=== PATIENT | male | born 1970 | race African-American/Black ===

== ENCOUNTER 2016-08-14 06:36 | Inpatient (IN) | payer OTHER ==
--- NOTE | ~2016-08-14 | CR63 ---
[facility] A Service of [facility] & [facility] RADIOLOGY TEXT RESULTS PATIENT: RADHA SCHREIBER LOCATION: [facility] 55- : 71 UNIT #: [id number] AGE: [address]: Rivera Humphries MD SEX: M ORDER DR: [id number] [facility] [address] [facility]. [place], [place] [address] [id number] MR#: [id number] Acc #: [id number] NAME: RADHA SCHREIBER : 1970 SEX: M STUDY DATE/TIME: 08/14/2016 7:42 UNIT: [facility] ROOM: [facility] STUDY DESCRIPTION: CR Chest 2 View Attending Physician: Fani Garcia M.D. Ordering Physician: Yuniel Solares D.O. Primary Care Physician: Cristina Amezquita M.D. MEDICAL IMAGING REPORT This report is preliminary unless electronic signature is present EXAM Two-view chest x-ray HISTORY Constant coughing, unproductive, cannot sleep, symptoms for 3-4 days, history of untreated essential hypertension and history of bronchitis. COMMENT Two views of the chest reviewed. Comparison study is 10/15/2014. No pleural effusion. Mild thoracic degenerative changes. Cardiac silhouette size is normal. No acute-appearing parenchymal infiltrate, acute congestive failure or pneumothorax. IMPRESSION No active disease. Dictated by... Danae Escobedo M.D. THIS IS AN ELECTRONICALLY VERIFIED REPORT Danae Escobedo M.D. at 08/16/2016 8:38 AM ROMAN/erickson TD: 08/15/2016 06:56 JOB #: [id number] MEDICAL IMAGING REPORT Page 1 of 1 COPY
--- NOTE | ~2016-08-14 | EKG ---
PATIENT: RADHA SCHREIBER UNIT #: [id number] Ventricular Rate: 71 BPM Atrial Rate: 71 BPM P-R Interval: 134 ms QRS Duration: 100 ms Q-T Interval: 406 ms QTC Calculation(Bezet): 441 ms P [place]: 68 degrees Calculated R [place]: 45 degrees Calculated T [place]: 20 degrees Diagnosis Line: Sinus rhythm with marked sinus arrhythmia Diagnosis Line: Nonspecific T wave abnormality Diagnosis Line: Abnormal ECG Diagnosis Line: When compared with ECG of 14-AUG-2016 08:24, Diagnosis Line: No significant change was found Diagnosis Line: Confirmed by SATHISH ARTHUR MD ([id number]) on Diagnosis Line: 08/15/2016 5:17:34 PM INTERPRETING MD: PÉREZ
--- NOTE | ~2016-08-14 | HP ---
Unit #: [id number] #: [id number] Patient: RADHA SCHREIBER [id number] [facility]. [place], [place] [address] [id number] I MR#: [id number] NAME: RADHA SCHREIBER ROOM: 558 Age: 46 Sex: M Admission Date: 08/14/2016 : 1970 Attending Physician: Fani Garcia M.D. Primary Care Physician: Cristina Amezquita M.D. HISTORY AND PHYSICAL CHIEF COMPLAINT Cough, chest pain. HISTORY OF PRESENT ILLNESS The patient is a 46-year-old male with a past medical history of asthma, hypertension, who presented to the emergency department for evaluation of the above. The patient states that he had a two to three day history of increasing shortness of breath and nonproductive cough. He denies any fever. He states that he has had chest pain in the mid chest that he describes as "irritating." He has had associated shortness of breath. The pain has been fairly constant in nature. There are no alleviating factors exacerbated by breathing. He states that he has had pain in the left upper extremity as well. He denies any similar pain. In the emergency department, chest x-ray was done and showed nothing acute. Initial EKG showed normal sinus rhythm, rate of 64 beats/minute. Initial cardiac enzymes are negative. Urine tox screen was positive for cocaine and marijuana. He was given aspirin and Solu-Medrol in the emergency department. He is being admitted to [facility] for evaluation and further treatment. PAST MEDICAL HISTORY 1. The patient denies hospitalizations. 2. Asthma. 3. Hypertension although the patient denies taking medication for over a year. PAST SURGICAL HISTORY 1. Left finger surgery. 2. Jaw surgery. SOCIAL HISTORY The patient lives with his sister. He smokes a pack of cigarettes daily. He reports occasional alcohol use. He denied illicit drug use; however, his tox screen is positive for cocaine. He is not currently working. FAMILY HISTORY Notable for his mother dying at the age of 64 of a myocardial infarction. She also had a history of stroke. ALLERGIES No known allergies. Unit #: [id number] #: [id number] Patient: RADHA SCHREIBER HOME MEDICATIONS None. REVIEW OF SYSTEMS A complete review of systems is negative except as indicated in the HPI. DIAGNOSTIC STUDIES CARDIOVASCULAR: EKG shows normal sinus rhythm with a rate of 64 beats/minute. IMAGING: Chest x-ray shows nothing acute. LABORATORY: Basic metabolic panel notable for potassium of 3.3. Complete blood count notable for white blood cell count of 15.4. D-dimer is 157. Troponin is less than 0.05. Urinalysis notable for trace leukocyte esterase, 1+ protein, 5-10 white blood cells. Urine tox screen positive for marijuana and cocaine. PHYSICAL EXAMINATION VITAL SIGNS: Temperature is 98.5, pulse 87, respirations 18, blood pressure 138/105, most recently 143/96. Oxygen saturation is 97% on room air. GENERAL: The patient is an -Syrian male who is awake and alert, in no acute distress. HEENT: The head is atraumatic. Mucous membranes are moist. NECK: Supple. Trachea is midline. CARDIOVASCULAR: Regular rate and rhythm. LUNGS: Clear to auscultation bilaterally with no increased work of breathing. ABDOMEN: Soft, nontender with bowel sounds present in all four quadrants. EXTREMITIES: Nontender with no pedal edema. NEURO: The patient is awake and alert. He follows commands. PSYCH: Mood and affect are normal. The patient is cooperative. SKIN: Skin of examined areas if warm and dry. ASSESSMENT The patient is a 46-year-old male with: 1. Chest pain: The patient has never had a stress test or cardiac catheterization. The patient received aspirin in the emergency department. 2. Cocaine abuse. 3. Possible urinary tract infection. 4. Leukocytosis. 5. Hypokalemia. 6. History of asthma. 7. Hypertension. 8. Tobacco abuse. PLAN 1. Admit for observation to intermediate level. 2. Healthy heart diet. 3. NPO after midnight for possible stress test. 4. Serial cardiac enzymes. Unit #: [id number] #: [id number] Patient: RADHA SCHREIBER 5. Fasting lipid profile. 6. Consult Dr. Barger regarding chest pain. 7. internet technology manager/social work consult regarding cocaine abuse. 8. Blood cultures x2. 9. Urine culture and sensitivity on urine in the lab. 10. Rocephin 1 g IV daily pending results of urine culture. 11. Check magnesium level. 12. Potassium/magnesium protocol. 13. Supplemental oxygen. 14. P.r.n. Duo-Nebs. 15. SCDs for DVT prophylaxis. 16. Repeat labs in the morning. 17. Additional workup and consultants based on above. Dictated by Usman Tabor/nona TD: 08/14/2016 13:17 JOB #: [id number] HISTORY AND PHYSICAL Page 1 of 1 X Fani Garcia MD X HISTORY AND PHYSICAL
--- NOTE | ~2016-08-14 | CO ---
Unit #: [id number] #: [id number] Patient: RADHA SCHREIBER [id number] [address] [place], [place] [address] [id number] I MR#: [id number] NAME: RADHA SCHREIBER ROOM: 55 Age: 46 Sex: M Admission Date: 08/14/2016 : 1970 Attending Physician: Rivera Humphries M.D. Primary Care Physician: Cristina Amezquita M.D. Consultation Date: 08/15/2016 CONSULTATION REPORT BRIEF HISTORY The patient is a 46-year-old, who presents with originally chest pain, now presents with a 2-day history of abdominal pain. It is diffuse suprapubic nonradiating. He has had a history of similar type pain. Reports he was diagnosed with diverticula and placed on antibiotics for 2 weeks. This was in the last 5 months. He has had no colonoscopy. No recent diarrhea or bright red blood per rectum. PAST MEDICAL HISTORY Respiratory dysfunction. PAST SURGICAL HISTORY No previous operations. MEDICATIONS No chronic medications. SOCIAL HISTORY Smokes pack per day. Occasional alcohol. FAMILY HISTORY Negative for GI malignancy. REVIEW OF SYSTEMS No cardiopulmonary complaints at this time. Else, 10 systems reviewed and negative. PHYSICAL EXAMINATION GENERAL: He is awake, alert, appropriate, in no distress. HEENT: Unremarkable. NECK: Supple. No JVD. Trachea midline. LUNGS: Clear to auscultation. Bilateral breath sounds symmetric. CARDIOVASCULAR: Regular rate and rhythm. ABDOMEN: Soft. It is diffusely tender in the suprapubic region. No rebound. No masses palpable. No hernias. No peritoneal signs. EXTREMITIES: No clubbing, cyanosis, or edema. DIAGNOSTIC STUDIES LABORATORY RESULTS: Show white count of 19. IMAGING STUDIES: Recent CT scan shows perisigmoid inflammation with microperforation. No drainable abscess. ASSESSMENT Unit #: [id number] #: [id number] Patient: RADHA SCHREIBER Diverticulitis, recurrent with microperforation. PLAN Recommend bowel rest, antibiotics. We will reassess. We will eventually require colonoscopy and likely elective resection. Dictated by... Norm Doe M.D. MARK/mary TD: 08/15/2016 17:16 JOB #: [id number] CONSULTATION REPORT Page 1 of 1 X Norm Doe MD CONSULTATION REPORT
--- NOTE | ~2016-08-14 | A ---
[facility] Nutrition Therapy DATE: 08/18/16 Patient: RADHA SCHREIBER Physician: NATALIYA Address: [address] Room/Bed: [address] [place] [address], Zip: [place] [address] Admit Date: 08/14/16 Date of : [birth year] Height: 5 7 Weight: 169 76.8 NUTRITIONAL ASSESSMENT: REASON: Consult re: diverticulitis diet education 46 y/o male admitted for chest pain PMH: asthma, HTN Anthropometrics: ht: 5'7" wt: 169# (76.8 kg) BMI 27 Labs: Alb 3.3 Assessment: Chart reviewed, events noted. Pt seen for consult re: diverticulitis diet education. RD marketing summer intern visited pt at bedside. Pt reports he has experienced diverticulitits flare-ups the past few months. RD marketing summer intern provided written and verbal low fiber diet education and advised pt to follow low-fiber diet and gradually increase fiber intake as tolerated. Pt had no questions at this time. RD will remain available. Intervention: 1. Diverticulitis diet education Recommendations: 1. Follow low-fiber diet and gradually increase fiber intake as tolerated to regulate GI function. Respectfully, SHAYY MERINO, international guest coordinator Marlene Little MS, RD, LD [facility] cc: client file
--- NOTE | ~2016-08-14 | EKG ---
PATIENT: RADHA SCHREIBER UNIT #: [id number] Ventricular Rate: 64 BPM Atrial Rate: 64 BPM P-R Interval: 142 ms QRS Duration: 106 ms Q-T Interval: 436 ms QTC Calculation(Bezet): 449 ms P [place]: 65 degrees Calculated R [place]: 27 degrees Calculated T [place]: 17 degrees Diagnosis Line: Normal sinus rhythm Diagnosis Line: Nonspecific T wave abnormality Diagnosis Line: Abnormal ECG Diagnosis Line: No previous ECGs available Diagnosis Line: Confirmed by PARAM FERNANDEZ MD ([id number]) on Diagnosis Line: 08/14/2016 10:11:20 AM INTERPRETING MD: DEANN
--- NOTE | ~2016-08-14 | CT2 ---
[facility] A Service of [facility] & [facility] RADIOLOGY TEXT RESULTS PATIENT: RADHA SCHREIBER LOCATION: [facility] 558-01 : [birth year] UNIT #: [id number] AGE: [address]: Rivera Humphries MD SEX: M ORDER DR: [id number] [facility] [address] [facility]. [place], [place] [address] [id number] I MR#: [id number] Acc #: [id number] NAME: RADHA SCHREIBER : 1970 SEX: M STUDY DATE/TIME: 08/15/2016 13:30 UNIT: [place] [facility] ROOM: [facility] STUDY DESCRIPTION: CT Abd and Pelv W Cont Attending Physician: Rivera Humphries M.D. Ordering Physician: Rivera Humphries M.D. Primary Care Physician: Cristina Amezquita M.D. MEDICAL IMAGING REPORT This report is preliminary unless electronic signature is present EXAM CT abdomen and pelvis with contrast 08/15/2016 1330 hours HISTORY 46-year-old man with complaint of epigastric abdominal pain for 4 days. COMPARISON Abdominal film 10/15/2014. No prior CT scan. TECHNIQUE Dynamic helical CT images were obtained from the lung bases through the pubic symphysis with oral and intravenous contrast. Contrast was Isovue-370 100 mL IV. Sagittal and coronal reconstructions were performed. Total exam DLP 766 mGy-cm. This CT examination was performed with one or more of the following radiation dose reduction techniques: automatic exposure control, adjustment of mA and/or kV according to patient size, and iterative reconstruction. FINDINGS Images through the lung bases are clear. There are no pleural effusions. Contrasted images through the abdomen and pelvis demonstrate a normal appearance to the liver, spleen, pancreas, gallbladder, bile ducts, adrenal glands and kidneys. The abdominal aorta is normal in caliber. The stomach is unopacified and contracted. The small bowel is partially opacified with contrast and appears normal. The terminal ileum and appendix are normal. There is only a small amount of contrast within the cecum. The remainder of the colon is unopacified. There is bowel wall thickening through a fairly long segment of the sigmoid colon where there are diverticula present. Along the superior margin of this portion of the inflamed [facility]. [facility] A Service of [facility] & [facility] RADIOLOGY TEXT RESULTS PATIENT: RADHA SCHREIBER LOCATION: [facility] 558-01 : [birth year] UNIT #: [id number] AGE: [address]: Rivera Humphries MD SEX: M ORDER DR: sigmoid colon, there is extraluminal bubble of air with surrounding ground-glass change. This most likely represents an area of a small contained perforation. The bubble of air measures 1.1 cm. There is no fluid collection or drainable abscess. Images through the lower pelvis demonstrate a normal rectum. The bladder, seminal vesicles and prostate are normal. IMPRESSION There is a fairly long abnormal thick-walled segment of sigmoid colon which there are a few diverticula present. There is surrounding ground-glass change particularly along the superior margin of the sigmoid colon. Within this area of ground-glass change, there is an extraluminal bubble of air measuring 1.1 cm most likely representing a small contained perforation. There is no drainable fluid collection or abscess at this time. No free air is seen over the liver or near the hemidiaphragms. STAT * RESULT Dictated by... Kristie Stevens M.D. THIS IS AN ELECTRONICALLY VERIFIED REPORT Kristie Stevens M.D. at 08/16/2016 9:29 AM CASSIDY/erickson TD: 08/15/2016 14:01 JOB #: [id number] MEDICAL IMAGING REPORT Page 1 of 1 COPY
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
[~2016-08-14 06:36] MED LIST: AMOXICILLIN500 M1 PO; FLEXERIL10 MG PO; ZYRTEC10 M2 PO
[2016-08-14 07:21] LABS: BASOPHIL# 0.1 X10e3 (0-0.3); BASOPHIL% 0.7 % (0-2.5); EOSINOPHIL# 0.1 X10e3 (0-0.7); EOSINOPHIL% 0.8 % (0.0-7.0); HEMATOCRIT 44.7 % (38.0-50.0); HEMOGLOBIN 14.9 gm/dL (13.0-16.0); LYMPHOCYTE# 2.9 X10e3 (1.0-3.5); LYMPHOCYTE% 18.8 % (17.0-45.0); MEAN CELL VOLUME 84.1 FL (83-96); MEAN CORPUSCULAR HEMOGLOBIN 28.1 PG (28-34); MEAN CORPUSCULAR HGB CONC 33.4 g/dL (30-36); MEAN PLATELET VOLUME 7.7 FL (6.5-11.5); MONOCYTE# 1.1 X10e3 (0-1.0); MONOCYTE% 6.9 % (3.0-12.0); NEUTROPHIL# 11.2 X10e3 (1.5-7.1); NEUTROPHIL% 72.8 % (40-75); PLATELET COUNT 333 X10e3 (140-420); RED BLOOD COUNT 5.31 X10e (3.90-5.60); RED CELL DISTRIBUTION WIDTH 16.2 % (11.0-15.5); WHITE BLOOD COUNT 15.4 X10e3 (4.0-10.5)
[2016-08-14 07:22] LABS: DIFF IND YES
[2016-08-14 07:40] LABS: CALCIUM SERUM 8.6 mg/dL (8.4-10.2); CREATININE SERUM 1.2 mg/dL (0.6-1.4); GLOM FILT RATE Estimated 84.2 mL/min (>60); POTASSIUM 3.3 mmol/L (3.5-5.1)
[2016-08-14 07:42] LABS: PLATELET ESTIMATE NORMAL (NORMAL)
[2016-08-14 07:43] LABS: ANISOCYTOSIS SL
[2016-08-14 08:51] LABS: POC - CKMB 2.4 ng/mL (0.0-7.9); POC - TROPONIN <0.05 ng/mL (<=0.05)
[2016-08-14 09:47] LABS: URINE SOURCE CLEAN CATCH
[2016-08-14 09:52] LABS: URINE APPEARANCE CLOUDY; URINE BILIRUBIN NEG (NEG); URINE BLOOD NEG (NEG); URINE COLOR DK YELLOW; URINE GLUCOSE NEG (NEG); URINE KETONE NEG (NEG); URINE LEUKOCYTE ESTERASE TRACE (NEG); URINE NITRATE NEG (NEG); URINE PH 5.5 (5-8); URINE PROTEIN 1+ (NEG); URINE SPECIFIC GRAVITY 1.046 (1.003-1.035)
[2016-08-14 09:54] LABS: CULTURE INDICATED? YES; URBCS1 AUWI 0-2 /[HPF] (0-2); URINE BACTERIA AUWI NEG (NEGATIVE); URINE SQUAMOUS EPITHELIAL CELL NONE SEEN /[HPF]
[2016-08-14 10:14] LABS: AMPHETAMINE NEG (NEG); BARBITURATES NEG (NEG); BENZODIAZEPINES NEG (NEG); COCAINE POS (NEG); MARIJUANA POS (NEG); OPIATES NEG (NEG); TRICYCLIC ANTIDEPRESSANTS NEG (NEG); U METHADONE NEG (NEG)
[2016-08-14 11:13] LABS: POC - CKMB 2.2 ng/mL (0.0-7.9); POC - TROPONIN <0.05 ng/mL (<=0.05)
[2016-08-14 13:23] LABS: MAGNESIUM 2.1 mg/dL (1.6-3.0)
[2016-08-14] MEDS ORDERED: [UNRECOGNIZED DRUG - REMARK] (16:10)
[2016-08-14 19:52] LABS: %MB 0.4 % (0.0-4.0); MB 3.1 ng/ml
[2016-08-15 00:23] LABS: %MB 0.4 % (0.0-4.0); MB 2.6 ng/ml
[2016-08-15 07:09] LABS: HEMATOCRIT 41.8 % (38.0-50.0); MEAN CELL VOLUME 83.3 FL (83-96); MEAN CORPUSCULAR HEMOGLOBIN 27.9 PG (28-34); MEAN CORPUSCULAR HGB CONC 33.5 g/dL (30-36); MEAN PLATELET VOLUME 7.8 FL (6.5-11.5); RED BLOOD COUNT 5.02 X10e (3.90-5.60); RED CELL DISTRIBUTION WIDTH 16.1 % (11.0-15.5); WHITE BLOOD COUNT 19.5 X10e3 (4.0-10.5)
[2016-08-15 07:30] LABS: CALCIUM SERUM 8.3 mg/dL (8.4-10.2); GLOM FILT RATE Estimated 104.9 mL/min (>60); POTASSIUM 3.4 mmol/L (3.5-5.1)
[2016-08-16 06:38] LABS: HEMATOCRIT 42.1 % (38.0-50.0); HEMOGLOBIN 14.3 gm/dL (13.0-16.0); MEAN CORPUSCULAR HEMOGLOBIN 28.2 PG (28-34); MEAN CORPUSCULAR HGB CONC 33.9 g/dL (30-36); RED BLOOD COUNT 5.07 X10e (3.90-5.60); RED CELL DISTRIBUTION WIDTH 16.5 % (11.0-15.5)
[2016-08-16 07:03] LABS: ALBUMIN SERUM 3.3 g/dL (3.5-5.0); BILIRUBIN,TOTAL 0.6 mg/dL (0.2-2.0); BUN/CREATININE RATIO 11.81; CALCIUM SERUM 8.8 mg/dL (8.4-10.2); CREATININE SERUM 1.1 mg/dL (0.6-1.4); GLOM FILT RATE Estimated 93.5 mL/min (>60); MAGNESIUM 1.9 mg/dL (1.6-3.0); POTASSIUM 3.8 mmol/L (3.5-5.1); PROTEIN TOTAL SERUM 6.6 g/dL (6.0-8.3)
[2016-08-17 05:25] LABS: BASOPHIL# 0.1 X10e3 (0-0.3); BASOPHIL% 0.4 % (0-2.5); EOSINOPHIL% 0.3 % (0.0-7.0); HEMATOCRIT 40.8 % (38.0-50.0); HEMOGLOBIN 13.6 gm/dL (13.0-16.0); LYMPHOCYTE# 2.3 X10e3 (1.0-3.5); LYMPHOCYTE% 16.5 % (17.0-45.0); MEAN CORPUSCULAR HEMOGLOBIN 28.1 PG (28-34); MEAN CORPUSCULAR HGB CONC 33.4 g/dL (30-36); MEAN PLATELET VOLUME 7.9 FL (6.5-11.5); MONOCYTE# 1.2 X10e3 (0-1.0); MONOCYTE% 8.5 % (3.0-12.0); NEUTROPHIL# 10.3 X10e3 (1.5-7.1); NEUTROPHIL% 74.3 % (40-75); PLATELET COUNT 299 X10e3 (140-420); RED BLOOD COUNT 4.85 X10e (3.90-5.60); RED CELL DISTRIBUTION WIDTH 16.4 % (11.0-15.5); WHITE BLOOD COUNT 13.9 X10e3 (4.0-10.5)
[2016-08-17 05:40] LABS: DIFF IND NO
[2016-08-17 06:13] LABS: BUN/CREATININE RATIO 12.72; CALCIUM SERUM 8.4 mg/dL (8.4-10.2); CREATININE SERUM 1.1 mg/dL (0.6-1.4); GLOM FILT RATE Estimated 93.5 mL/min (>60); POTASSIUM 3.7 mmol/L (3.5-5.1)
[2016-08-18 06:16] LABS: HEMATOCRIT 40.5 % (38.0-50.0); HEMOGLOBIN 13.6 gm/dL (13.0-16.0); MEAN CELL VOLUME 84.1 FL (83-96); MEAN CORPUSCULAR HEMOGLOBIN 28.2 PG (28-34); MEAN CORPUSCULAR HGB CONC 33.5 g/dL (30-36); MEAN PLATELET VOLUME 7.8 FL (6.5-11.5); RED BLOOD COUNT 4.81 X10e (3.90-5.60); RED CELL DISTRIBUTION WIDTH 16.2 % (11.0-15.5); WHITE BLOOD COUNT 12.5 X10e3 (4.0-10.5)
[2016-08-18] MEDS ORDERED: LIPITOR20 MG PO (09:03)
[2016-08-18] MEDS ORDERED: LORTAB 7.5-3251 EACH PO (09:20)
[2016-08-18] MEDS ORDERED: FLAGYL PO (09:26)
[2016-08-18] MEDS ORDERED: LEVAQUIN PO (09:27)
== END 2016-08-18 12:44 | disposition home or self-care (01) | DRG 392 ==
LOC: CED 06:36 → C5B 11:45 → CED 14:56 → C5B 08-15 09:27
PROVIDERS: Emergency Medicine; Family Medicine; Internal Medicine; Surgery
DX: K57.20 Diverticulitis of large intestine with perforation and abscess without bleeding (principal); I10 Essential (primary) hypertension; Z91.14 Patient's other noncompliance with medication regimen; J45.909 Unspecified asthma, uncomplicated; M77.12 Lateral epicondylitis, left elbow; G58.8 Other specified mononeuropathies; F14.10 Cocaine abuse, uncomplicated; F10.10 Alcohol abuse, uncomplicated; F12.10 Cannabis abuse, uncomplicated; E87.6 Hypokalemia; F17.210 Nicotine dependence, cigarettes, uncomplicated; R07.9 Chest pain, unspecified
CPT/HCPCS: 36415; 71020; 74177; 80048; 80053; 80061; 80307; 81003; 82550; 82553; 83036; 83690; 83735; 84132; 84443; 84484; 85025; 85027; 85379; 87040; 87086; 93005; 93306; 94640; 94760; 96374; 99285; J0696; J1650; J1956; J2270; J2930; J3475; Q9967